=== PATIENT | male | born 1985 | race African-American/Black ===

== ENCOUNTER 2020-05-24 10:23 | Inpatient (IN) | payer BC ==
[~2020-05-24] VITALS: Ht 170.2 cm; Wt 74.6 kg
[2020-05-24] VITALS (16 sets, daily range): BP systolic 121–148; BP diastolic 71–84
[2020-05-24] MEDS ORDERED: AMLODIPINE BESY10 MG PO (10:29)
[2020-05-24 10:35] LABS: ABSOLUTE NEUTROPHILS 11.1 thou/uL (1.4-8.2); BASOPHILS 0.6 % (0.0-2.0); EOSINOPHILS 0.2 % (0.0-3.0); HEMATOCRIT 45.7 % (42.0-52.0); HEMOGLOBIN 15.5 gm/dL (14.0-18.0); LYMPHOCYTES 16.4 % (24.0-44.0); MCH 32.1 pg (26.0-34.0); MCV 94.3 fL (80.0-100.0); MONOCYTES 6.6 % (1.0-8.0); PLATELET COUNT 294 thou/uL (150-400); POLYS 76.2 % (36.0-66.0); RBC 4.85 mil/uL (4.50-6.00); RDW 13.6 % (10.5-14.5); WBC 14.6 thou/uL (4.0-11.0)
[2020-05-24 10:45] LABS: CALCIUM 9.4 mg/dL (8.5-10.1); CREATININE 1.3 mg/dL (0.7-1.3); POTASSIUM 4.3 mmol/L (3.5-5.1)
[2020-05-24 10:52] LABS: TROPONIN-I 2.21 ng/mL (<0.06)
[2020-05-24 11:31] LABS: HEMATOCRIT 43.4 % (42.0-52.0); HEMOGLOBIN 14.9 gm/dL (14.0-18.0); MCH 32.2 pg (26.0-34.0); MCHC 34.4 g/dL (28.0-37.0); MCV 93.6 fL (80.0-100.0); RBC 4.64 mil/uL (4.50-6.00); RDW 13.6 % (10.5-14.5)
[2020-05-24 11:55] LABS: PROTIME 10.9 Seconds (9.3-11.4)
--- NOTE | 2020-05-24 16:33 | NUR ---
PT CARE ASSUMED AT 1230. ASSESSMENTS CHARTED. MEDICATIONS CHARTED. LFA IV. SINUS RHYTHM. CARDIAC CATH; RT GROIN, NO CLOSURE, NO INTERVENTION. HEMOSTASIS AT 1215, 2 HR BEDREST, UNTIL 1415.
--- NOTE | 2020-05-25 00:48 | H ---
[facility] [place] [address] HISTORY AND PHYSICAL Name: KERMIT DASH Room #: 210-P ADM IN M.R.#: [id number] Admission: 05/24/20 Attend Phys: Addi Gunderson MD Discharge: Date of : 83 Report #: [id number] THIS REPORT FOR: cc: FAM - No family physician/PCP Facundo Byrd Jin S. MD ~ INDICATION: Chest pain. HISTORY OF PRESENT ILLNESS: This is a 35-year-old gentleman with a history of tobacco use, hypertension, hypercholesterolemia, presenting with 2 days of chest discomfort. He describes heaviness on the left chest area, radiating to the back and left side of his neck. It comes and goes, can occur at rest or with exertion. Sometimes, it is exacerbated with deep inspiration. He denies any recent fever, chills, nausea, diarrhea or orthopnea. Initial ECG reveals sinus rhythm with ST segment elevation in V2-V3, could represent an early repolarization versus ischemia. Second ECG does not reveal any changes to the ST segments. First troponin is abnormal at 2.21. PAST MEDICAL HISTORY: Hypertension. ALLERGIES: None. MEDICATIONS: Amlodipine 5 mg daily. SOCIAL HISTORY: One pack per day smoker. FAMILY HISTORY: Negative for premature CAD. REVIEW OF SYSTEMS: A full 10-point review of systems performed. Only the pertinent positives and negatives are described in the HPI. PHYSICAL EXAMINATION: VITAL SIGNS: Blood pressure is 146/70, heart rate is 85 beats per minute. GENERAL APPEARANCE: This is a well-developed, well-nourished male, in no acute distress. HEENT: Normocephalic, atraumatic. Oral mucosa moist. NECK: Supple. LUNGS: CTA. CARDIAC: Regular rate and rhythm, S1, S2 positive. ABDOMEN: Soft, nontender. EXTREMITIES: No cyanosis, no edema. NEUROLOGIC: Alert and oriented x 3. LABORATORY VALUES: White count 14.6, hemoglobin 15.5, creatinine is 1.3. Troponin is 2.21. ECG reveals sinus rhythm with ST segment elevation in V2-V3. [facility] [address] [place] [address] HISTORY AND PHYSICAL Name: EKTAKERMIT L Room #: [address] [place] [address] [place] [facility]#: [id number] Admission: 05/24/20 Attend Phys: Addi Gunderson MD Discharge: Date of : 83 Report #: [id number] ASSESSMENT AND PLAN: 1. Acute coronary syndrome with positive troponin/abnormal ECG. Given his continued chest pain and positive troponin, we will proceed with cardiac catheterization. I discussed with him the risks, benefits and alternatives. All questions were answered. 2. Hypertension, continue with amlodipine. 3. Tobacco use, complete smoking cessation is advised. 4. Hypercholesterolemia, will need a statin. <ELECTRONICALLY SIGNED> By: Addi Gunderson MD 05/25/20 0048 1129 1140 Addi Gunderson MD /noaln
--- NOTE | 2020-05-25 02:43 | NUR ---
PT ALERT AND ORIENTED X4. VSS AFEBRILE. C/O CP 2-3/10 EARLIER THIS EVENING. NOTIFIED DR FLORES. TYLENOL GIVEN PO. HE LATER STATED PAIN HAD GONE AWAY. MAT APPROXIMATELY 22:30 PT C/O CHEST PAIN AGAIN AND WAS DIAPHORETIC. EKG DONE AND SHOWED ST ELEVATION -PERICARDITIS. DR FLORES NOTIFIED PER MIYA MARTIN. MORPHINE GIVEN IV AND ASA STARTED Q 6 HRS. HE IS NOW RESTING QUIETLY AND DENIES ANY PAIN.
[2020-05-25 05:11] VITALS: BP 154/88
[2020-05-25 05:12] LABS: HEMATOCRIT 44.2 % (42.0-52.0); HEMOGLOBIN 14.7 gm/dL (14.0-18.0); MCH 31.6 pg (26.0-34.0); MCHC 33.3 g/dL (28.0-37.0); RBC 4.65 mil/uL (4.50-6.00); RDW 13.4 % (10.5-14.5); WBC 8.3 thou/uL (4.0-11.0)
[2020-05-25 05:25] LABS: CALCIUM 9.1 mg/dL (8.5-10.1); CREATININE 1.2 mg/dL (0.7-1.3); POTASSIUM 3.9 mmol/L (3.5-5.1)
[2020-05-25 05:30] LABS: TROPONIN-I 1.95 ng/mL (<0.06)
[2020-05-25 07:00] VITALS: BP 139/89
[2020-05-25 07:55] VITALS: BP 139/89
[2020-05-25] MEDS ORDERED: ASPIRIN325 PO (09:56)
[2020-05-25 10:16] VITALS: BP 139/89
--- NOTE | 2020-05-25 11:22 | NUR ---
PT CARE ASSUMED AT 0700. ASSESSMENTS CHARTED. MEDICATIONS CHARTED. LFA IV. RAC IV. SINUS RHYTHM. UP AD ITALIA. DAY 2; RT GROIN, NO INTERVENTIONS. PT TO BE DISCHARGED HOME WITH APPT TO SEE DR FLORES. DISCHARGE PAPERWORK SIGNED. TELEMETRY D/C'D. IV'S D/C'D.
--- NOTE | 2020-05-25 11:40 | CATHLAB ---
[facility] [place] [address] INVASIVE PROCEDURE REPORT Name: KERMIT DASH Room #: 210-P [facility] IN M.R.#: [id number] Admission: 05/24/20 Attend Phys: Addi Gunderson MD Discharge: 05/25/20 Date of : 83 Report #: [id number] THIS REPORT FOR: cc: FAM - No family physician/PCP Facundo Byrd Jin S. MD ~ APPROVED REPORT Study performed: 05/24/2020 11:30:38 Patient Details Patient Status: ED Room #: The patient is a 35 year-old male Event Personnel Addi Gunderson Control System Manager, Raji Rashid RTR Monitor, Renee Mir RN RN, Barbra King RTR, ROUSTABOUT PUSHER Scrub Procedures Performed Art Access - R femoral artery* Left Heart Cath w/or w/o Coronaries [id number] [facility] [address] Initial Mod Sed Same Phys/QHP Gr 126715 99823 Mod Sed Same Phys/QHP Ea 022820 Hemostasis with Manual pressure Indication STEMI , Dyspnea, Chest pain, The patient presented with ongoing chest pain, initial troponin level was approximately 2.2. ECG revealed ST elevation in the precordial leads, acute TX versus early repolarization versus pericarditis. Risk Factors Hypertension, Tobacco History () Procedure Narrative The Right Groin^ was infiltrated with 1% Lidocaine subcutaneous anesthesia. A PINNACLE 4FR Sheath #[id number] sheath was inserted into the RFA^. Coronary angiography was performed using coronary diagnostic catheters. The right coronary system was accessed and visualized with a JR4 catheter. The left coronary system was accessed and visualized with a JL4 catheter. The left ventricle was accessed and visualized with a PIGTAIL catheter. Left ventricular/Aortic Valve gradient assessed via catheter pullback. Left ventriculogram was performed in 30 degree projection. Hemostasis was obtained with manual pressure following sheath removal without any complications. [facility] [place] [address] INVASIVE PROCEDURE REPORT Name: KERMIT DASH Room #: 210-P [facility]#: [id number] Admission: 05/24/20 Attend Phys: Addi Gunderson MD Discharge: 05/25/20 Date of : 83 Report #: [id number] The patient tolerated the procedure well and there were no complications associated with the procedure. There was no hematoma. Intraoperative Conscious Sedation Sedation start time: 1147 Case end Time: 1220 Fentanyl 50 mcg Versed 1 mg Fluoro Time: 1.48 minutes Dose: DAP 3597.60 cGycm2 471 mGy Contrast Type and Amount: Omnipaque 100 ml Coronary Angiography The patient's coronary anatomy is right dominant. Diagnostic Cath Left Main The left main artery is a large-caliber vessel, appears angiographically normal. LAD The LAD is a moderate-sized caliber vessel, traverses the anterior wall and terminates just before the apex. This vessel appears patent with no flow-limiting lesions. Diagonal 1 This is a small to moderate-sized caliber vessel, patent with no flow-limiting lesions. Diagonal 2 This is a small to moderate-sized caliber vessel, with minimal plaquing in the proximal segment. Circumflex This is a moderate-sized caliber vessel, with minimal plaquing in the proximal segment. OM1 This is a moderate-sized caliber vessel, appears angiographically normal. This vessel supplies several branches. Right Coronary The RCA is a dominant vessel, appears angiographically normal. R PDA This is a moderate-sized caliber vessel, wraps around the apex. This vessel appears angiographically normal. RPLV This is a moderate-sized caliber vessel, patent with no flow-limiting lesions. Left Ventriculography The left ventricle is normal in size with normal contractility. The left ventricular ejection fraction is estimated to be 55-60%. Hemodynamics The aortic pressure is 122/72 mmHg with a mean of 83 mmHg. The left ventricular pressure is 116/13 mmHg with a mean of mmHg. [facility] [address] [place] [address] INVASIVE PROCEDURE REPORT Name: KERMIT DASH Room #: 210-P [facility] IN M.R.#: [id number] Admission: 05/24/20 Attend Phys: Addi Gunderson MD Discharge: 05/25/20 Date of : 83 Report #: [id number] ventricular end diastolic pressure is 20 mmHg. Pullback from the left ventricle to the aorta revealed a mm gradient across the aortic valve. Conclusion 1. There is no evidence for obstructive coronary artery disease. 2. There is minimal plaquing noted in the second diagonal artery and left circumflex artery. 3. This is a right dominant system. 4. There is normal LV systolic function. 5. Recommend risk factor management. <ELECTRONICALLY SIGNED> By: Addi Gunderson MD 05/25/20 1139 1139 1139 Addi Gunderson MD /INF
--- NOTE | 2020-05-26 09:21 | EKG ---
[address] [place] [address] ELECTROCARDIOGRAM REPORT Name: KERMIT DASH Room #: 210-P [facility]#: [id number] Admission: 05/24/20 Attend Phys: Addi Gunderson MD Discharge: 05/25/20 Date of : 83 Report #: [id number] [facility] ED Test Date: 2020-05-24 Test Time: 10:23:58 Pat Name: KERMIT DASH Department: Room: [facility] Gender: M Telemetry Registered Nurse: NADER : 1985 Requested By: Hasmukh Carlton Order Number: [id number] MD: Denis Barroso Measurements Intervals [place] Rate: 101 P: 33 [place]: 147 QRS: -32 QRSD: 88 T: 37 QT: 311 QTc: 404 Interpretive Statements Sinus tachycardia Left axis deviation Diffuse ST elevation, consider early repolarization Baseline wander in lead(s) V5 No previous ECG available for comparison Electronically Signed On 05-26-2020 9:21:33 CDT by Denis Barroso [email or web address] <ELECTRONICALLY SIGNED> By: Denis Barroso MD, [facility] 05/26/20920 1023 1023 Denis Barroso MD, [facility] /EPI
--- NOTE | 2020-05-26 09:24 | EKG ---
[address] [address] ELECTROCARDIOGRAM REPORT Name: KERMIT DASH Room #: 210-[facility] IN [facility]#: [id number] Admission: 05/24/20 Attend Phys: Addi Gunderson MD Discharge: 05/25/20 Date of : 83 Report #: [id number] [facility] ED Test Date: 2020-05-24 Test Time: 10:58:45 Pat Name: KERMIT DASH Department: Room: 210 Gender: M Joist Setter: SELAM : 1985 Requested By: Hasmukh Carlton Order Number: [id number] MD: Denis Barroso Measurements Intervals [place] Rate: 82 P: 27 [place]: 166 QRS: -14 QRSD: 97 T: 19 QT: 343 QTc: 401 Interpretive Statements Sinus rhythm Diffuse ST elevation, consider early repolarization Compared to ECG 05/24/2020 10:23:58 Sinus tachycardia no longer present Electronically Signed On 05-26-2020 9:24:42 CDT by Denis Barroso [email or web address] <ELECTRONICALLY SIGNED> By: Denis Barroso MD, [facility] 05/26/20 0924 57 Denis Barroso MD, [facility] /EPI
--- NOTE | 2020-05-26 09:31 | EKG ---
[address] [place] [address] ELECTROCARDIOGRAM REPORT Name: KERMIT DASH Room #: 210-[facility] IN [facility].#: [id number] Admission: 05/24/20 Attend Phys: Addi Gunderson MD Discharge: 05/25/20 Date of : 83 Report #: [id number] [facility] Test Date: 2020-05-24 Test Time: 22:30:34 Pat Name: KERMIT DASH Department: Room: 210 Gender: M [employer] Tender: KARTHIK MARTIN : 1985 Requested By: Addi Gunderson Order Number: [id number] MD: Denis Barroso Measurements Intervals [place] Rate: 75 P: 43 [place]: 158 QRS: -8 QRSD: 99 T: 35 QT: 351 QTc: 392 Interpretive Statements Sinus rhythm Diffuse ST segment elevation, consider early repolarization versus pericarditis Compared to ECG 05/24/2020 10:58:45 ST (T wave) deviation still present Electronically Signed On 05-26-2020 9:31:05 CDT by Denis Barroso [email or web address] <ELECTRONICALLY SIGNED> By: Denis Barroso MD, [facility] 05/26/20 0931 29 29 Denis Barroso MD, [facility] /EPI
== END 2020-05-25 10:39 | disposition home or self-care (01) | DRG 287 ==
LOC: ER 10:23 → 2N 11:47 → TBACV 12:04 → 2N 12:37
PROVIDERS: Emergency Medicine; ADMIT Internal Medicine Cardiovascular Disease; ATTEND Internal Medicine Cardiovascular Disease
PROC: B2111ZZ Fluoroscopy of Multiple Coronary Arteries using Low Osmolar Contrast (ICD-10-PCS; principal; 2020-05-24)
PROC: 4A023N7 Measurement of Cardiac Sampling and Pressure, Left Heart, Percutaneous Approach (ICD-10-PCS; principal; 2020-05-24)
PROC: B2151ZZ Fluoroscopy of Left Heart using Low Osmolar Contrast (ICD-10-PCS; principal; 2020-05-24)
DX: I31.9 Disease of pericardium, unspecified (principal); I25.10 Atherosclerotic heart disease of native coronary artery without angina pectoris; I10 Essential (primary) hypertension; E78.00 Pure hypercholesterolemia, unspecified; Z79.899 Other long term (current) drug therapy
CPT/HCPCS: 10081

== ENCOUNTER → 2020-05-28 | Outpatient (CLI) | payer BC ==
[~2020-05-28] MED LIST: AMLODIPINE BESY10 MG PO; ASPIRIN325 PO
== END ==
LOC: SJCVCIMAG 12:17
PROVIDERS: ATTEND Internal Medicine Cardiovascular Disease
DX: I10 Essential (primary) hypertension (principal); R07.9 Chest pain, unspecified; I25.10 Atherosclerotic heart disease of native coronary artery without angina pectoris; F17.200 Nicotine dependence, unspecified, uncomplicated; Z79.899 Other long term (current) drug therapy; Z72.89 Other problems related to lifestyle